=== PATIENT | female | born 1975 | race Caucasian/White ===

== ENCOUNTER 2020-10-07 11:02 | Emergency (ER) | payer MEDICAID ==
[~2020-10-07] VITALS: Ht 157.5 cm; Wt 102.7 kg
[2020-10-07] MEDS ORDERED: GOOD NEIGHBOR200 M1 PO (11:26)
[2020-10-07] MEDS ORDERED: GOOD NEIGHBOR P20 M1 PO (11:27)
[2020-10-07] MEDS ORDERED: DESYREL 100MG100 MG PO (11:27)
[2020-10-07] MEDS ORDERED: LAMICTAL200 M1 PO (11:27)
[2020-10-07] MEDS ORDERED: NEURONTIN300 M1 PO (11:28)
[2020-10-07] MEDS ORDERED: MINIPRESS5 M1 PO (11:29)
[2020-10-07] MEDS ORDERED: NEURONTIN600 M1 PO (11:29)
[2020-10-07] MEDS ORDERED: LORAZEPAM1 M1 PO (11:29)
[2020-10-07] MEDS ORDERED: NORCO 325 MG-7.1 TA1 PO (13:22)
[2020-10-07] MEDS ORDERED: CYCLOBENZAPRINE10 M1 PO (13:25)
[2020-10-07 13:43] LABS: URINE APPEARANCE CLEAR; URINE BILIRUBIN 1+ (NEGATIVE); URINE BLOOD NEGATIVE (NEGATIVE); URINE COLOR YELLOW; URINE GLUCOSE NEGATIVE (NEGATIVE); URINE KETONE NEGATIVE (NEGATIVE); URINE LEUKOCYTE ESTERASE NEGATIVE (NEGATIVE); URINE MUCUS PRESENT (NOT PRESENT); URINE NITRATE NEGATIVE (NEGATIVE); URINE PROTEIN(semi-quant) TRACE mg/dL (NEGATIVE); URINE UROBILINOGEN NORMAL (NORMAL); URINE WBC 0-1 /hpf (0-3)
[2020-10-07 13:44] VITALS: BP 121/42
== END 2020-10-07 13:44 | disposition home or self-care (01) ==
LOC: ED 11:02
PROVIDERS: Internal Medicine
DX: M54.16 Radiculopathy, lumbar region (principal); F17.200 Nicotine dependence, unspecified, uncomplicated; Z90.710 Acquired absence of both cervix and uterus
CPT/HCPCS: J1885

== ENCOUNTER → 2020-10-21 | Outpatient (CLI) | payer MEDICAID ==
[~2020-10-21] MED LIST: AZITHROMYCIN 250MGPK PO; CYCLOBENZAPRINE10 M1 PO; DESYREL 100MG100 MG PO; GOOD NEIGHBOR P20 M1 PO; GOOD NEIGHBOR200 M1 PO; GUAIFENESIN AND5 ML PO; LAMICTAL200 M1 PO; LORAZEPAM1 M1 PO; MINIPRESS5 M1 PO; NEURONTIN300 M1 PO; NEURONTIN600 M1 PO; NORCO 325 MG-51 TA1 PO; NORCO 325 MG-7.1 TA1 PO; PREDNISONE20 M1 PO; TESSALON PERLE100 M1 PO
== END ==
LOC: LAB 15:04
DX: Z20.822 Contact with and (suspected) exposure to COVID-19 (principal)

== ENCOUNTER 2020-10-23 10:57 | Emergency (ER) | payer MEDICAID ==
[~2020-10-23 10:57] MED LIST changes: -AZITHROMYCIN 250MGPK PO; -GUAIFENESIN AND5 ML PO; -NORCO 325 MG-51 TA1 PO; -PREDNISONE20 M1 PO; -TESSALON PERLE100 M1 PO
[2020-10-23] MEDS ORDERED: PREDNISONE20 M1 PO (11:25)
[2020-10-23] MEDS ORDERED: AZITHROMYCIN 250MGPK PO (11:25)
[2020-10-23] MEDS ORDERED: TESSALON PERLE100 M1 PO (11:25)
[2020-10-23 12:22] LABS: BASO # 0.01 (0.02-0.10); HEMATOCRIT 40.9 % (37.0-47.0); HEMOGLOBIN 13.6 g/dL (12.5-16.0); LYMPH# 1.36 (1.50-4.00); MEAN CELL VOLUME 101 fl (78-100); MEAN CORPUSCULAR HEMOGLOBIN 34 pg (27-31); MEAN CORPUSCULAR HGB CONC 33 g/dL (33-37); MEAN PLATELET VOLUME 9.1 fl (7.4-10.4); MONO # 0.33 (0.20-0.80); PLATELET COUNT 266 K/mm3 (130-400); RED BLOOD COUNT 4.04 M/mm3 (4.10-5.30); RED CELL DISTRIBUTION WIDTH 13.6 % (11.5-14.5); WHITE BLOOD COUNT 9.4 K/mm3 (4.8-10.8)
[2020-10-23] MEDS ORDERED: GUAIFENESIN AND5 ML PO (13:00)
[2020-10-23 13:39] VITALS: BP 146/105
== END 2020-10-23 13:41 | disposition home or self-care (01) ==
LOC: ED 10:57
PROVIDERS: Family Medicine
DX: K21.9 Gastro-esophageal reflux disease without esophagitis (principal); M54.16 Radiculopathy, lumbar region; G89.29 Other chronic pain; M54.9 Dorsalgia, unspecified; F17.210 Nicotine dependence, cigarettes, uncomplicated; Z79.1 Long term (current) use of non-steroidal anti-inflammatories (NSAID); Z79.899 Other long term (current) drug therapy

== ENCOUNTER 2020-11-29 14:20 | Emergency (ER) | payer MEDICAID ==
[~2020-11-29 14:20] MED LIST changes: +AZITHROMYCIN 250MGPK PO; +GUAIFENESIN AND5 ML PO; +PREDNISONE20 M1 PO; +TESSALON PERLE100 M1 PO
[2020-11-29 14:30] VITALS: BP 109/76
[2020-11-29] MEDS ORDERED: NORCO 325 MG-51 TA1 PO ×4 (15:31→15:38)
[2020-11-29] MEDS ORDERED: CYCLOBENZAPRINE10 M1 PO ×2 (15:31→15:35)
== END 2020-11-29 15:56 | disposition home or self-care (01) ==
LOC: ED 14:20
DX: M62.830 Muscle spasm of back (principal); M25.552 Pain in left hip; K21.9 Gastro-esophageal reflux disease without esophagitis; E66.01 Morbid (severe) obesity due to excess calories; F32.A Depression, unspecified; F41.9 Anxiety disorder, unspecified; Z79.899 Other long term (current) drug therapy
CPT/HCPCS: J1885; J2360

== ENCOUNTER → 2020-12-06 | Outpatient (CLI) | payer MEDICAID ==
[~2020-12-06] MED LIST changes: +NORCO 325 MG-51 TA1 PO
[2020-12-06 12:13] LABS: BASO # 0.04 K/mm3 (0.02-0.10); EOS # 0.19 K/mm3 (0.04-0.40); EOS % 2.1 % (1.0-5.0); HEMATOCRIT 41.7 % (37.0-47.0); HEMOGLOBIN 14.1 g/dL (12.5-16.0); LYMPH# 2.41 K/mm3 (1.50-4.00); MEAN CELL VOLUME 98 fl (78-100); MEAN CORPUSCULAR HEMOGLOBIN 33 pg (27-31); MEAN CORPUSCULAR HGB CONC 34 g/dL (33-37); MEAN PLATELET VOLUME 9.3 fl (7.4-10.4); MONO # 0.59 K/mm3 (0.20-0.80); NEU # 5.62 K/mm3 (1.40-6.50); PLATELET COUNT 268 K/mm3 (130-400); RED BLOOD COUNT 4.27 M/mm3 (4.10-5.30); WHITE BLOOD COUNT 8.9 K/mm3 (4.8-10.8)
[2020-12-06 12:18] LABS: POTASSIUM 3.2 mmol/L (3.5-5.1)
[2020-12-06 12:20] LABS: CALCIUM 9.6 mg/dL (8.3-10.5)
[2020-12-06 12:21] LABS: TOTAL PROTEIN 7.3 g/dL (6.4-8.3)
[2020-12-06 12:23] LABS: TOTAL BILIRUBIN 0.3 mg/dL (0.2-1.2)
== END ==
LOC: LAB 11:58
PROVIDERS: Internal Medicine
DX: K90.9 Intestinal malabsorption, unspecified (principal); F29 Unspecified psychosis not due to a substance or known physiological condition; R73.03 Prediabetes; R78.5 Finding of other psychotropic drug in blood

== ENCOUNTER → 2020-12-28 | Outpatient (CLI) | payer MEDICAID | LOC: LAB 09:15 | DX: K90.9 Intestinal malabsorption, unspecified (principal) ==

== ENCOUNTER → 2021-01-26 | Outpatient (CLI) | payer MEDICAID ==
[~2021-01-26] MED LIST changes: +ADULT ASPIRIN R81 MG PO; +ALDACTONE25 M1 PO; +COLESTID 1GM1 G PO; +CYANOCOBAL1000 MCG/1 IM; +DICLOFENAC SOD100 M1 PO; +FEOSOL325 MG PO; +LATUDA80 MG PO; +VITAMIN D21250 MCG PO
== END ==
LOC: LAB 16:43
DX: Z20.822 Contact with and (suspected) exposure to COVID-19 (principal)

== ENCOUNTER 2021-02-01 18:47 | Emergency (ER) | payer MEDICAID ==
[~2021-02-01] VITALS: Ht 157.5 cm; Wt 102.7 kg
[~2021-02-01 18:47] MED LIST changes: -ADULT ASPIRIN R81 MG PO; -ALDACTONE25 M1 PO; -COLESTID 1GM1 G PO; -CYANOCOBAL1000 MCG/1 IM; -DICLOFENAC SOD100 M1 PO; -FEOSOL325 MG PO; -LATUDA80 MG PO; -VITAMIN D21250 MCG PO
[2021-02-01] MEDS ORDERED: DICLOFENAC SOD100 M1 PO (19:19)
[2021-02-01] MEDS ORDERED: LATUDA80 MG PO (19:19)
[2021-02-01] MEDS ORDERED: COLESTID 1GM1 G PO (19:20)
[2021-02-01] MEDS ORDERED: VITAMIN D21250 MCG PO (19:22)
[2021-02-01] MEDS ORDERED: CYANOCOBAL1000 MCG/1 IM (19:22)
[2021-02-01] MEDS ORDERED: FEOSOL325 MG PO (19:23)
[2021-02-01] MEDS ORDERED: ALDACTONE25 M1 PO (19:23)
[2021-02-01] MEDS ORDERED: ADULT ASPIRIN R81 MG PO (19:51)
[2021-02-01 20:35] LABS: POTASSIUM 3.8 mmol/L (3.5-5.1); SODIUM 138 mmol/L (136-145)
[2021-02-01 20:36] LABS: CALCIUM 8.6 mg/dL (8.3-10.5)
[2021-02-01 20:38] LABS: GLUCOSE 102 mg/dL (65-105); TOTAL PROTEIN 6.9 g/dL (6.4-8.3)
[2021-02-01 20:39] LABS: CARBON DIOXIDE 22 mmol/L (22-29); D-DIMER 0.22 mg/L FEU (0.15-0.50); TOTAL BILIRUBIN 0.3 mg/dL (0.2-1.2)
[2021-02-01 20:41] LABS: HEMATOCRIT 41.4 % (37.0-47.0); HEMOGLOBIN 13.8 g/dL (12.5-16.0); MEAN CELL VOLUME 95 fl (78-100); MEAN CORPUSCULAR HEMOGLOBIN 32 pg (27-31); MEAN CORPUSCULAR HGB CONC 33 g/dL (33-37); PLATELET COUNT 224 K/mm3 (130-400); RED BLOOD COUNT 4.36 M/mm3 (4.10-5.30); RED CELL DISTRIBUTION WIDTH 12.4 % (11.5-14.5); WHITE BLOOD COUNT 4.1 K/mm3 (4.8-10.8)
[2021-02-01 20:43] LABS: AST-SGOT 37 U/L (5-34)
[2021-02-01 20:44] LABS: ALT/SGPT 38 U/L (0-55)
[2021-02-01 20:53] LABS: TROPONIN-I < 0.03 ng/mL (<0.030)
[2021-02-01 21:11] LABS: BAND 3 % (0-10); NEUTROPHILS 24 % (42-75)
[2021-02-01 21:12] LABS: MONOCYTE 9 % (3-10)
[2021-02-01 21:13] LABS: LYMPHOCYTE 59 % (20-51)
[2021-02-01 22:07] VITALS: BP 134/77
== END 2021-02-01 22:07 | disposition home or self-care (01) ==
LOC: ED 18:47
PROVIDERS: Nurse Practitioner
DX: U07.1 COVID-19 (principal); G89.29 Other chronic pain; M54.50 Low back pain, unspecified; I10 Essential (primary) hypertension; F17.210 Nicotine dependence, cigarettes, uncomplicated; Z79.899 Other long term (current) drug therapy; Z79.1 Long term (current) use of non-steroidal anti-inflammatories (NSAID)
CPT/HCPCS: J7030

== ENCOUNTER 2021-02-25 19:50 | Emergency (ER) | payer MEDICAID ==
[~2021-02-25] VITALS: Ht 157.5 cm; Wt 100.0 kg
[~2021-02-25 19:50] MED LIST changes: +ADULT ASPIRIN R81 MG PO; +ALDACTONE25 M1 PO; +COLESTID 1GM1 G PO; +CYANOCOBAL1000 MCG/1 IM; +DICLOFENAC SOD100 M1 PO; +FEOSOL325 MG PO; +LATUDA80 MG PO; +VITAMIN D21250 MCG PO
[2021-02-25] MEDS ORDERED: DIFLUCAN200 M1 PO (21:03)
[2021-02-25] MEDS ORDERED: CEFDINIR300 MG PO (21:03)
[2021-02-25 21:19] VITALS: BP 143/96
== END 2021-02-25 21:19 | disposition home or self-care (01) ==
LOC: ED 19:50
DX: H66.92 Otitis media, unspecified, left ear (principal); I10 Essential (primary) hypertension; K21.9 Gastro-esophageal reflux disease without esophagitis; F41.9 Anxiety disorder, unspecified; F31.9 Bipolar disorder, unspecified; F43.10 Post-traumatic stress disorder, unspecified; F17.210 Nicotine dependence, cigarettes, uncomplicated; Z88.0 Allergy status to penicillin; Z88.1 Allergy status to other antibiotic agents; Z91.040 Latex allergy status; Z79.899 Other long term (current) drug therapy

== ENCOUNTER → 2021-03-10 | Outpatient (CLI) | payer MEDICAID ==
[~2021-03-10] MED LIST changes: +CEFDINIR300 MG PO; +DIFLUCAN200 M1 PO
== END ==
LOC: CARDREHAB 13:19
DX: G47.19 Other hypersomnia (principal)
CPT/HCPCS: G0399

== ENCOUNTER → 2021-04-04 | Outpatient (CLI) | payer MEDICAID | LOC: AMSURD 16:40 | DX: H26.9 Unspecified cataract (principal) ==

== ENCOUNTER → 2021-04-04 | Outpatient (CLI) | payer MEDICAID ==
[2021-04-04 16:49] LABS: POTASSIUM 3.3 mmol/L (3.5-5.1)
[2021-04-04 16:50] LABS: ALBUMIN 4.2 g/dL (3.5-5.0)
[2021-04-04 16:51] LABS: CALCIUM 9.2 mg/dL (8.3-10.5)
[2021-04-04 16:52] LABS: TOTAL PROTEIN 7.4 g/dL (6.4-8.3)
[2021-04-04 16:54] LABS: TOTAL BILIRUBIN 0.4 mg/dL (0.2-1.2)
[2021-04-04 16:59] LABS: MAGNESIUM 1.81 mg/dL (1.60-2.60)
== END ==
LOC: LAB 16:19
PROVIDERS: Internal Medicine
DX: E78.5 Hyperlipidemia, unspecified (principal); K90.9 Intestinal malabsorption, unspecified; F29 Unspecified psychosis not due to a substance or known physiological condition; M54.16 Radiculopathy, lumbar region; F51.5 Nightmare disorder; F31.9 Bipolar disorder, unspecified; K91.1 Postgastric surgery syndromes; G89.29 Other chronic pain; H26.9 Unspecified cataract; R73.03 Prediabetes

== ENCOUNTER → 2021-11-10 | Outpatient (CLI) | payer MEDICAID ==
[~2021-11-10] MED LIST changes: +ACETAMINOPHEN-H1 TA2 PO; +PRILOSEC 20MG20 MG PO; +TIZANIDINE HYDRO4 M1 PO
[2021-11-10 17:00] LABS: URINE APPEARANCE CLEAR; URINE BILIRUBIN NEGATIVE (NEGATIVE); URINE BLOOD NEGATIVE (NEGATIVE); URINE COLOR YELLOW; URINE GLUCOSE NEGATIVE (NEGATIVE); URINE KETONE NEGATIVE (NEGATIVE); URINE LEUKOCYTE ESTERASE NEGATIVE (NEGATIVE); URINE MUCUS PRESENT (NOT PRESENT); URINE NITRATE NEGATIVE (NEGATIVE); URINE PROTEIN(semi-quant) TRACE (NEGATIVE); URINE UROBILINOGEN NORMAL (NORMAL); URINE WBC 0-1 /hpf (0-3)
== END ==
LOC: LAB 16:02
PROVIDERS: Internal Medicine
DX: J45.40 Moderate persistent asthma, uncomplicated (principal); F31.9 Bipolar disorder, unspecified; N39.0 Urinary tract infection, site not specified; F60.3 Borderline personality disorder; M25.551 Pain in right hip; R73.03 Prediabetes

== ENCOUNTER → 2022-01-31 | Outpatient (CLI) | payer MEDICAID | LOC: LAB 08:10 | DX: N39.0 Urinary tract infection, site not specified (principal) ==

== ENCOUNTER → 2022-03-21 | Outpatient (CLI) | payer MEDICAID | LOC: CARDREHAB 11:18 | DX: G47.19 Other hypersomnia (principal) | CPT/HCPCS: G0399 ==

== ENCOUNTER → 2022-04-03 | Outpatient (CLI) | payer MEDICAID ==
[2022-04-03 16:19] LABS: URINE WBC 0 /hpf (0-3)
[2022-04-03 16:28] LABS: BASO # 0.02 K/mm3 (0.02-0.10); EOS # 0.15 K/mm3 (0.04-0.40); EOS % 1.9 % (1.0-5.0); HEMATOCRIT 39.5 % (37.0-47.0); HEMOGLOBIN 13.5 g/dL (12.5-16.0); LYMPH# 2.79 K/mm3 (1.50-4.00); MEAN CELL VOLUME 91 fl (78-100); MEAN CORPUSCULAR HEMOGLOBIN 31 pg (27-31); MEAN CORPUSCULAR HGB CONC 34 g/dL (33-37); MEAN PLATELET VOLUME 9.1 fl (7.4-10.4); MONO # 0.48 K/mm3 (0.20-0.80); PLATELET COUNT 239 K/mm3 (130-400); RED BLOOD COUNT 4.32 M/mm3 (4.10-5.30); RED CELL DISTRIBUTION WIDTH 12.9 % (11.5-14.5); WHITE BLOOD COUNT 7.8 K/mm3 (4.8-10.8)
[2022-04-03 16:35] LABS: PROTHROMBIN TIME 10.4 SECONDS (9.0-12.0)
[2022-04-03 16:36] LABS: ALBUMIN 4.3 g/dL (3.5-5.0); POTASSIUM 3.2 mmol/L (3.5-5.1)
[2022-04-03 16:38] LABS: CALCIUM 9.4 mg/dL (8.3-10.5)
[2022-04-03 16:41] LABS: TOTAL BILIRUBIN 0.4 mg/dL (0.2-1.2)
[2022-04-03 16:45] LABS: MAGNESIUM 1.93 mg/dL (1.60-2.60); URINE APPEARANCE CLEAR; URINE BILIRUBIN NEGATIVE (NEGATIVE); URINE BLOOD NEGATIVE (NEGATIVE); URINE COLOR YELLOW; URINE GLUCOSE NEGATIVE (NEGATIVE); URINE KETONE NEGATIVE (NEGATIVE); URINE LEUKOCYTE ESTERASE NEGATIVE (NEGATIVE); URINE MUCUS PRESENT (NOT PRESENT); URINE NITRATE NEGATIVE (NEGATIVE); URINE PROTEIN(semi-quant) TRACE (NEGATIVE); URINE UROBILINOGEN NORMAL (NORMAL)
[2022-04-03 17:22] LABS: TOTAL PROTEIN 8.3 g/dL (6.4-8.3)
== END ==
LOC: LAB 15:54 → AMSURD 15:54
PROVIDERS: Internal Medicine
DX: Z01.818 Encounter for other preprocedural examination (principal); M51.36 Other intervertebral disc degeneration, lumbar region; M54.16 Radiculopathy, lumbar region